=== PATIENT | female | born 1980 | race Caucasian/White ===

== ENCOUNTER 2020-04-01 20:01 | Emergency (ER) | payer BC ==
[~2020-04-01] VITALS: Ht 177.8 cm; Wt 86.2 kg
[~2020-04-01 20:01] MED LIST: PRENATAL1 TA6 PO
[2020-04-01] MEDS ORDERED: Motrin,Rufen800 MG PO (22:48)
== END 2020-04-01 22:59 | disposition home or self-care (01) ==
LOC: ED 20:01
DX: S93.602A Unspecified sprain of left foot, initial encounter (principal); Z88.8 Allergy status to other drugs, medicaments and biological substances; Z79.899 Other long term (current) drug therapy; X58.XXXA Exposure to other specified factors, initial encounter; Y93.89 Activity, other specified; Y92.89 Other specified places as the place of occurrence of the external cause; Y99.8 Other external cause status

== ENCOUNTER → 2022-02-10 | Outpatient (CLI) | payer BC ==
[~2022-02-10] MED LIST changes: +Motrin,Rufen800 MG PO
[2022-02-10 12:31] LABS: BASO # 0.1 10*3/uL (0.0-0.1); BASO % 0.6 % (0.0-1.0); EOS # 0.2 10*3/uL (0.0-0.4); EOS % 2.1 % (1.0-4.0); HEMATOCRIT 39.2 % (37.0-47.0); LYMPH # 2.7 10*3/uL (1.3-4.4); LYMPH % 33.7 % (27.0-41.0); MEAN CELL VOLUME 86.9 fl (81.0-99.0); MEAN CORPUSCULAR HGB 28.8 pg (27.0-31.0); MEAN CORPUSCULAR HGB CONC 33.2 g/dl (33.0-37.0); MEAN PLATELET VOLUME 9.6 fl (9.6-12.3); MONO # 0.7 10*3/uL (0.1-1.0); MONO % 8.7 % (3.0-9.0); NEUT # 4.4 10*3/uL (2.3-7.9); NEUT % 54.7 % (47.0-73.0); PLATELET COUNT AUTOMATED 267 10*3/uL (130-400); RED BLOOD COUNT 4.51 10*6/uL (4.10-5.10); RETICULOCYTE % 1.89 % (0.50-2.50)
[2022-02-10 12:39] LABS: BILIRUBIN Negative (Negative); BLOOD Negative (Negative); CLARITY Clear (Clear); COLOR Yellow (Yellow); GLUCOSE Negative (Negative); KETONE Negative (Negative); LEUKO ESTERASE Negative (Negative); NITRITE Negative (Negative); SPECIFIC GRAVITY <= 1.005 (1.001-1.030); UROBILINOGEN 0.2 E.U./dl (0.0-1.0)
[2022-02-10 12:57] LABS: BUN 9 mg/dl (7-24); CHLORIDE 109 mmol/L (98-107); CHOLESTEROL 189 mg/dL (<200); CREATININE 0.77 mg/dL (0.55-1.02); GAMMA GLUTAMYL TRANSPEPTIDASE 41 U/L (5-55); IRON 42 ug/dL (50-170); POTASSIUM 4.1 mmol/L (3.5-5.1); SGOT/AST 23 IU/L (3-35); SGPT/ALT 38 U/L (12-78); SODIUM 139 mmol/L (136-145); TOTAL IRON BINDING CAPACITY 318 ug/dl (250-450); TRIGLYCERIDES 246 mg/dl (<150)
[2022-02-10 13:05] LABS: ALKALINE PHOSPHATASE 75 U/L (45-117); LDL CHOLESTEROL 97 mg/dL (9-159)
[2022-02-10 13:18] LABS: EPITHELIAL CELLS 0-2; RBC 0-2 rbc/hpf (0-2)
[2022-02-10 13:30] LABS: FERRITIN 44.8 ng/mL (10.0-291.0); VITAMIN D, 25-HYDROXY 54.7 ng/mL (30-100)
[2022-02-11 08:08] LABS: RHEUMATOID FACTOR <10.0 IU/mL (<14.0)
[2022-02-11 14:08] LABS: ANTI-DSDNA ANTIBODIES 1 IU/mL (0-9)
== END | disposition home or self-care (01) ==
LOC: LAB 12:00
PROVIDERS: ATTEND Family Medicine
DX: E78.5 Hyperlipidemia, unspecified (principal); R79.89 Other specified abnormal findings of blood chemistry; R53.83 Other fatigue; E55.9 Vitamin D deficiency, unspecified

== ENCOUNTER 2024-12-09 14:41 | Inpatient (IN) | payer OTHER ==
[~2024-12-09] VITALS: Ht 177.8 cm; Wt 95.3 kg
[2024-12-09] VITALS (11 sets, daily range): BP systolic 119–178; BP diastolic 73–100
[2024-12-09] MEDS ORDERED: ZYRTEC-D TABLE1 EACH PO (14:53)
[2024-12-09 15:10] LABS: BILIRUBIN Negative (Negative); BLOOD Negative (Negative); CLARITY Clear (Clear); COLOR Yellow (Yellow); GLUCOSE Negative (Negative); KETONE Negative (Negative); LEUKO ESTERASE Trace (Negative); NITRITE Negative (Negative); SPECIFIC GRAVITY 1.015 (1.001-1.030); UROBILINOGEN 0.2 E.U./dl (0.0-1.0)
[2024-12-09 15:17] LABS: BACTERIA 2+; WBC 0-2 wbc/hpf (0-5)
[2024-12-09] MEDS ORDERED: IOHEXOL 300 MG/ML 100 ML VIAL IV ONE (15:20)
[2024-12-09 15:21] LABS: BASO # 0.1 10*3/uL (0.0-0.1); BASO % 0.3 % (0.0-1.0); EOS # 0.1 10*3/uL (0.0-0.4); EOS % 0.3 % (1.0-4.0); HEMATOCRIT 39.7 % (37.0-47.0); MEAN CELL VOLUME 87.8 fl (81.0-99.0); MEAN CORPUSCULAR HGB 28.5 pg (27.0-31.0); MEAN CORPUSCULAR HGB CONC 32.5 g/dl (33.0-37.0); MEAN PLATELET VOLUME 9.2 fl (9.6-12.3); MONO # 1.1 10*3/uL (0.1-1.0); MONO % 5.6 % (3.0-9.0); NEUT % 82.8 % (47.0-73.0); PLATELET COUNT AUTOMATED 268 10*3/uL (130-400); RED BLOOD COUNT 4.52 10*6/uL (4.10-5.10); RED CELL DISTRI WIDTH 12.9 % (0-14.5); WHITE BLOOD COUNT 19.3 10*3/uL (4.8-10.8)
[2024-12-09 15:44] LABS: ALKALINE PHOSPHATASE 73 U/L (46-116); BUN 9 mg/dl (9-23); CHLORIDE 104 mmol/L (98-107); LIPASE 35 U/L (12-53); POTASSIUM 3.9 mmol/L (3.4-5.1); SGPT/ALT 19 U/L (5-49); TOTAL PROTEIN 7.5 gm/dL (6.0-8.0)
[2024-12-09] MEDS ORDERED: Ketorolac Tromethamine 30 MG/ML VIAL IV ONE ×2 (15:50→22:13)
[2024-12-09] MEDS ORDERED: SODIUM CHLORIDE 0.9% 1,000 ML IV ONE (15:50)
[2024-12-09] MEDS ORDERED: Ondansetron Hydrochloride 4 MG/2 ML VIAL IV ONE ×2 (15:50→22:13)
[2024-12-09] MEDS ORDERED: CEFEPIME HCL IN DEXTROSE 5 % 50 ML IV ONE (17:55)
[2024-12-09] MEDS ORDERED: ACETAMINOPHEN 650 MG SUPP R PRN (18:40)
[2024-12-09] MEDS ORDERED: MORPHINE Sulfate 2 MG/ML SYR IV PRN (18:40)
[2024-12-09] MEDS ORDERED: Ondansetron Hydrochloride 4 MG/2 ML VIAL IV PRN (18:40)
[2024-12-09] MEDS ORDERED: Magnesium Hydroxide 30 ML UDC PO PRN (18:40)
[2024-12-09] MEDS ORDERED: BISACODYL 5 MG TAB PO PRN (18:40)
[2024-12-09] MEDS ORDERED: ACETAMINOPHEN 325 MG TAB PO PRN (18:40)
[2024-12-09] MEDS ORDERED: SODIUM CHLORIDE 0.9% 1,000 ML IV SCH (20:00)
[2024-12-09] MEDS ORDERED: ACETAMINOPHEN 100 ML IV ONE (20:16)
[2024-12-09] MEDS ORDERED: Piperacillin Sodium/Tazobact 100 ML IV ONE (20:20)
[2024-12-09] MEDS ORDERED: Lactated Ringer's Solution 1,000 ML IV ONE (20:31)
[2024-12-09] MEDS ORDERED: Bupivacaine Hydrochloride/Ep2 30 ML VIAL ONE (20:55)
[2024-12-09] MEDS ORDERED: fentaNYL CITRATE 100 MCG/2 ML VIAL IV ONE (22:13)
[2024-12-09] MEDS ORDERED: Succinylcholine Chloride 200 MG/10 ML SYRINGE IV ONE (22:13)
[2024-12-09] MEDS ORDERED: PROPOFOL 200 MG/20 ML VIAL IV ONE (22:13)
[2024-12-09] MEDS ORDERED: ROCURONIUM BROMIDE 50 MG/5 ML SYRINGE IV ONE (22:13)
[2024-12-09] MEDS ORDERED: Lidocaine Hydrochloride 5 ML VIAL IV ONE (22:13)
[2024-12-09] MEDS ORDERED: SUGAMMADEX SODIUM 200 MG/2 ML VIAL IV ONE (22:13)
[2024-12-09] MEDS ORDERED: Dexamethasone Sodium Phospha 4 MG/ML VIAL IV ONE (22:13)
[2024-12-09] MEDS ORDERED: Midazolam Hydrochloride 2 MG/2 ML VIAL IV ONE (22:13)
[2024-12-09] MEDS ORDERED: Promethazine Hydrochloride 25 MG/ML VIAL IV ONE (22:45)
[2024-12-09] MEDS ORDERED: Ketorolac Tromethamine 30 MG/ML VIAL IV PRN (22:50)
[2024-12-09] MEDS ORDERED: HYDROmorphONE Hydrochloride 1 MG/ML SYR IV PRN (22:50)
[2024-12-10 04:33] VITALS: BP 115/69
[2024-12-10 04:48] LABS: ACT PARTIAL THROMBO TIME 29.6 SECONDS (20.0-32.1)
[2024-12-10 05:01] LABS: ALKALINE PHOSPHATASE 67 U/L (46-116); BUN 9 mg/dl (9-23); CHLORIDE 106 mmol/L (98-107); CHOLESTEROL 173 mg/dL (<200); FREE T4 1.08 ng/dl (0.89-1.76); LDL CHOLESTEROL 117 mg/dL (9-159); POTASSIUM 4.5 mmol/L (3.4-5.1); SGPT/ALT 21 U/L (5-49); TOTAL PROTEIN 6.5 gm/dL (6.0-8.0); TRIGLYCERIDES 71 mg/dl (<150)
[2024-12-10] MEDS ORDERED: Pantoprazole Sodium 40 MG TAB PO SCH (06:00)
[2024-12-10 06:28] LABS: BASO % 0.1 % (0.0-1.0); HEMATOCRIT 35.2 % (37.0-47.0); MEAN CELL VOLUME 88.7 fl (81.0-99.0); MEAN CORPUSCULAR HGB 29.7 pg (27.0-31.0); MEAN CORPUSCULAR HGB CONC 33.5 g/dl (33.0-37.0); MEAN PLATELET VOLUME 10.2 fl (9.6-12.3); MONO # 0.4 10*3/uL (0.1-1.0); MONO % 2.8 % (3.0-9.0); NEUT # 11.2 10*3/uL (2.3-7.9); NEUT % 88.7 % (47.0-73.0); PLATELET COUNT AUTOMATED 258 10*3/uL (130-400); RED BLOOD COUNT 3.97 10*6/uL (4.10-5.10); RED CELL DISTRI WIDTH 13.2 % (0-14.5); WHITE BLOOD COUNT 12.6 10*3/uL (4.8-10.8)
[2024-12-10 07:00] LABS: VITAMIN D, 25-HYDROXY 81.8 ng/mL (30-100)
[2024-12-10 07:21] VITALS: BP 108/63
[2024-12-10 11:15] VITALS: BP 137/85
[2024-12-10] MEDS ORDERED: HYDROCODONE-AC1 EAC1 PO (14:31)
[2024-12-10] MEDS ORDERED: DULCOLAX STOOL100 MG PO (14:31)
== END 2024-12-10 22:05 | disposition home or self-care (01) | DRG 854 ==
LOC: ED 14:41 → EDHOLD 18:22
PROVIDERS: Emergency Medicine; Nurse Practitioner; ADMIT Family Medicine; ATTEND Family Medicine
PROC: 0DTJ4ZZ Resection of Appendix, Percutaneous Endoscopic Approach (ICD-10-PCS; principal; 2024-12-09)
DX: A41.9 Sepsis, unspecified organism (principal); K35.80 Unspecified acute appendicitis; N30.00 Acute cystitis without hematuria; K80.80 Other cholelithiasis without obstruction; R73.9 Hyperglycemia, unspecified; Z88.8 Allergy status to other drugs, medicaments and biological substances; Z82.49 Family history of ischemic heart disease and other diseases of the circulatory system; Z83.3 Family history of diabetes mellitus; Z80.1 Family history of malignant neoplasm of trachea, bronchus and lung

== ENCOUNTER → 2024-12-22 | Outpatient (CLI) | payer OTHER ==
[~2024-12-22] MED LIST changes: +DULCOLAX STOOL100 MG PO; +HYDROCODONE-AC1 EAC1 PO; +ZYRTEC-D TABLE1 EACH PO
[2024-12-22 09:09] LABS: BASO # 0.1 10*3/uL (0.0-0.1); BASO % 0.7 % (0.0-1.0); EOS # 0.2 10*3/uL (0.0-0.4); EOS % 2.8 % (1.0-4.0); HEMATOCRIT 38.6 % (37.0-47.0); MEAN CELL VOLUME 88.5 fl (81.0-99.0); MEAN CORPUSCULAR HGB 28.7 pg (27.0-31.0); MEAN CORPUSCULAR HGB CONC 32.4 g/dl (33.0-37.0); MEAN PLATELET VOLUME 9.5 fl (9.6-12.3); MONO # 0.6 10*3/uL (0.1-1.0); MONO % 7.3 % (3.0-9.0); NEUT # 4.3 10*3/uL (2.3-7.9); NEUT % 57.7 % (47.0-73.0); PLATELET COUNT AUTOMATED 308 10*3/uL (130-400); RED BLOOD COUNT 4.36 10*6/uL (4.10-5.10); RED CELL DISTRI WIDTH 12.6 % (0-14.5); WHITE BLOOD COUNT 7.5 10*3/uL (4.8-10.8)
[2024-12-22 09:19] LABS: ALKALINE PHOSPHATASE 73 U/L (46-116); BUN 9 mg/dl (9-23); CHLORIDE 106 mmol/L (98-107); CHOLESTEROL 184 mg/dL (<200); LDL CHOLESTEROL 107 mg/dL (9-159); POTASSIUM 4.3 mmol/L (3.4-5.1); SGPT/ALT 22 U/L (5-49); TOTAL PROTEIN 7.1 gm/dL (6.0-8.0); TRIGLYCERIDES 200 mg/dl (<150)
[2024-12-22 09:38] LABS: VITAMIN D, 25-HYDROXY 83.1 ng/mL (30-100)
== END | disposition home or self-care (01) ==
LOC: LAB 08:28
PROVIDERS: ATTEND Family Medicine
DX: Z13.6 Encounter for screening for cardiovascular disorders (principal); R73.01 Impaired fasting glucose; E03.9 Hypothyroidism, unspecified; E55.9 Vitamin D deficiency, unspecified; Z00.00 Encounter for general adult medical examination without abnormal findings

== ENCOUNTER 2025-06-08 20:21 | Emergency (ER) | payer OTHER ==
[~2025-06-08] VITALS: Ht 177.8 cm; Wt 95.3 kg
[2025-06-08] MEDS ORDERED: CEPHALEXIN500 M1 PO (20:53)
[2025-06-08] MEDS ORDERED: CEPHALEXIN 500 MG 2 CAP ED PACK PO SCH (20:55)
[2025-06-08] MEDS ORDERED: CLOBETASOL PROPIONATE 30 GM TUBE T ONE (20:55)
== END 2025-06-08 21:01 | disposition home or self-care (01) ==
LOC: ED 20:21
DX: S50.362A Insect bite (nonvenomous) of left elbow, initial encounter (principal); L03.114 Cellulitis of left upper limb; Z88.1 Allergy status to other antibiotic agents; Z79.899 Other long term (current) drug therapy; Z87.891 Personal history of nicotine dependence; W57.XXXA Bitten or stung by nonvenomous insect and other nonvenomous arthropods, initial encounter; Y93.89 Activity, other specified; Y92.89 Other specified places as the place of occurrence of the external cause; Y99.8 Other external cause status